=== PATIENT | female | born 1970 | race Caucasian/White ===

== ENCOUNTER 2018-10-30 06:56 | Inpatient (IN) | payer OTHER ==
[~2018-10-30] VITALS: Ht 157.5 cm; Wt 89.0 kg
[2018-10-30] VITALS (25 sets, daily range): BP systolic 117–155; BP diastolic 55–88; PULSE 80–102; RESP 14–24; Ht 157.5 cm; Wt 89.0 kg
[2018-10-30] MEDS ORDERED: ROCURONIUM 50 MG INJ ONE (07:00)
--- NOTE | 2018-10-30 09:17 | PREAC ---
Date/Time of Note Date/Time of Note DATE: 10/30/18 TIME: 09:14 Anesthesia Eval and Record Evaluation Time Pre-Procedure Interview DATE: 10/30/18 TIME: 09:14 Age 48 Sex female NPO: 8 hrs Preoperative diagnosis Lumbar L4-L5 Radiculopathy Planned procedure L4-L5 Laminectomy and fusion Past Medical History Past Medical History: Includes Musculoskeletal: Osteoarthritis GI: Morbid obesity Surgery & Anesthesia Issues No known issue Meds Anticoagulation: No Beta Gen within 24 hr: No Reason Beta Gen not given: Pt. not on B-Gen Meds reviewed: Yes Allergies Coded Allergies: No Known Allergy (Unverified , 10/28/18) Allergies Reviewed: Yes Labs/Studies Labs Reviewed: Reviewed by anesthesiologist test: Negative Studies: ECG Pre-procedure Exam Last vitals Vital Signs Date Temp Pulse Resp B/P (MAP) Pulse Ox O2 O2 Flow FiO2 Time Delivery Rate 10/30/18 98.0 80 18 119/62 100 Room Air 07:26 (81) Airway: Adequate mouth opening, Adequate thyromental dist Mallampati: Mallampati III Teeth: Normal Lung: Normal Heart: Normal ASA Physical Status ASA physical status: 3 Emergency: None Planned Anesthetic General/MAC: ETT Planned Pain Management Parenteral pain med Pre-operative Attestations Prior to commencing anesthesia and surgery, the patient was re-evaluated, there was verification of: *The patient's identity *The results of appropriate recent lab work and preoperative vital signs *The above evaluation not changing prior to induction *Anesthetic plan, risk benefits, alternative and complications discussed with patient/family; questions answered; patient/family understands, accepts and wishes to proceed. CRYSTAL SANDOVAL MD Oct 30, 2018 09:17
--- NOTE | 2018-10-30 09:18 | HPN ---
Date/Time of Note Date/Time of Note DATE: 10/30/18 TIME: 09:15 Interval H&P Admission Note Pt. seen H&P reviewed: Systems changes noted below Patient continues to have intractable axial LBP and B. LE radiating pain and numbness and weakness, R>>L. Discussed the risks and benefits of the above procedure again with the patient and her at bedside and they understand and would like to proceed with surgery. SHIRLEY NOLASCO MD Oct 30, 2018 09:18
[2018-10-30] MEDS ORDERED: BUPIVACAINE 0.5%/EPI (SDV) 10 ML INJ ONE (09:24)
[2018-10-30] MEDS ORDERED: GELATIN SIZE 100 SPONGE ONE ×2 (09:24→15:02)
[2018-10-30] MEDS ORDERED: LIDOCAINE 1%/EPI (1:100,000) (MDV) 20 ML ONE (09:24)
[2018-10-30] MEDS ORDERED: THROMBIN 5000 UNIT VIAL ONE ×2 (09:24→13:21)
[2018-10-30] MEDS ORDERED: POLYMYXIN/BACITRACIN 1L IRRIG ONE (09:25)
[2018-10-30] MEDS ORDERED: LIDOCAINE 0.5% (SDV) 50 ML INJ ONE (09:25)
[2018-10-30] MEDS ORDERED: BUPIVACAINE 0.5%/EPI (SDV) 30 ML INJ ONE (09:25)
[2018-10-30] MEDS ORDERED: METOCLOPRAMIDE 10 MG INJ IV PRN (09:30)
[2018-10-30] MEDS ORDERED: ONDANSETRON 4 MG INJ IV PRN (09:30)
[2018-10-30] MEDS ORDERED: FENTAnyl 50 MCG/ML VIAL IV PRN (09:30)
[2018-10-30] MEDS ORDERED: HYDROmorphONE 1 MG/5 ML IV SYRINGE IV PRN ×2 (09:30)
[2018-10-30] MEDS ORDERED: MEPERIDINE 25 MG INJ IV PRN (09:30)
[2018-10-30] MEDS ORDERED: DIPHENHYDRAMINE 50 MG INJ IV PRN (09:30)
[2018-10-30] MEDS ORDERED: MIDAZOLAM 1 MG/ML 2 ML INJ ONE (09:35)
[2018-10-30] MEDS ORDERED: FENTAnyl 50 MCG/ML VIAL ONE (12:07)
[2018-10-30] MEDS ORDERED: CEFAZOLIN 1 GM INJ ONE ×3 (15:31→15:43)
[2018-10-30] MEDS ORDERED: METOCLOPRAMIDE 10 MG INJ ONE (15:35)
[2018-10-30] MEDS ORDERED: ONDANSETRON 4 MG INJ ONE (15:35)
[2018-10-30] MEDS ORDERED: PROPOFOL 20 ML ONE (15:43)
[2018-10-30] MEDS ORDERED: LIDOCAINE 2% (SDV) 5 ML INJ ONE (15:43)
[2018-10-30] MEDS ORDERED: ETOMIDATE 20 MG INJ ONE (15:43)
--- NOTE | 2018-10-30 16:11 | PAC ---
Date/Time of Note Date/Time of Note DATE: 10/30/18 TIME: 16:10 Post-Anesthesia Notes Post-Anesthesia Note Last documented vital signs Vital Signs Date Temp Pulse Resp B/P (MAP) Pulse Ox O2 O2 Flow FiO2 Time Delivery Rate 10/30/18 98.0 80 18 119/62 100 Room Air 07:26 (81) Activity: WNL Respiratory function: WNL Cardiovascular function: WNL Mental status: Baseline Pain reasonably controlled: Yes Hydration appropriate: Yes Nausea/Vomiting absent: Yes Comments BP:134/67, P:84, Spo2:100%, T:98,8 CRYSTAL SANDOVAL MD Oct 30, 2018 16:11
[2018-10-30] MEDS ORDERED: NALOXONE (0.4 MG/ML) INJ IV PRN (16:30)
[2018-10-30] MEDS ORDERED: DOCUSATE SODIUM 100 MG CAP PO SCH ×2 (16:30→17:00)
[2018-10-30] MEDS ORDERED: NACL 0.9% 3 ML SYG IV SCH (16:30)
--- NOTE | 2018-10-30 16:39 | SIPON ---
Date/Time of Note Date/Time of Note DATE: 10/30/18 TIME: 16:36 Operative Report Preoperative Diagnosis L4-5 Grade II Spondylolisthesis Postoperative Diagnosis L4-5 Grade II spondylolisthesis Operation/Procedure Performed MIS L4-5 TLIF (11mm height expandable Wensel spine cage) Surgeon see signature line court assistant None Anesthesia: general Estimated blood loss: 150 - 200 ml's (200cc) Transfusion Required none Specimen None Grafts/Implants Please see OP report. Complications none SHIRLEY NOLASCO MD Oct 30, 2018 16:39
--- NOTE | 2018-10-30 16:39 | OPR ---
Date/Time of Note Date/Time of Note DATE: 10/30/18 TIME: 16:39 Operative Report Procedure Date: Oct 30, 2018 Preoperative Diagnosis 1. Grade 2 L4-5 spondylolisthesis 2. L4-5 lateral recess and foraminal stenosis Postoperative Diagnosis 1. Grade 2 L4-5 spondylolisthesis 2. L4-5 lateral recess and foraminal stenosis Operation/Procedure Performed 1. Minimally invasive right L4 decompressive hemilaminectomy (more laminectomy performed than would be required for a simple transforaminal lumbar interbody a rthrodesis) 2. Minimally invasive right L4-5 total facetectomy for transforaminal lumbar interbody arthrodesis 3. Placement of intervertebral cage at L4-5 (Wensel Spine titanium expandable lordotic TLIF 11 mm height cage) 4. Left L4-5 minimally invasive posterior pedicle screw instrumentation (RTI [place] 6.5 mm diameter pedicle screws) 5. L4-5 posterior arthrodesis 6. Internal reduction of L4-5 spondylolisthesis 7. Bone marrow aspirate harvest 8. Morselized local autologous bone graft harvest 9. Morselized allograft placement (demineralized bone matrix putty) 10. Intraoperative microscope with microdissection 11. Intraoperative fluoroscopy with professional interpretation 12. Intraoperative neurophysiologic monitoring including SSEP, MEP and EMG Surgeon see signature line Chief Crew Scheduler None Anesthesia Type: general Estimated Blood Loss: 150 - 200 ml's (200cc) Transfusion none Specimen None Grafts/Implants Please see below Tubes/Drains None Complications none Pt Condition Post Procedure: stable Disposition: PACU Indications This is a 48-year-old female with long-standing history of intractable axial low back pain and bilateral lower extremity radiating pain (much greater on the right than the left), numbness and weakness in the L4 and L5 distribution. The patient has not responded to conservative management. The risks and benefits of the above operation were explained in great detail to the patient and her both in the clinic setting as well as in the preoperative area. The patient and her fully understood the above discussion and wished to proceed with this surgery. Procedure Description The patient was brought to the operating room and after general anesthesia was obtained, was placed prone on top of the open Flako table. Her arms were abducted less than 90 degrees and placed in superman position. All pressure points were noted and padded appropriately. The midline lumbar spine was marked. Vertical paraspinal lines approximately 4-1/2 cm lateral to midline were marked. After the skin was prepped and draped under standard sterile fashion, the spinal needle was inserted along the paraspinal lines and the L4 and L5 pedicle entry points were located. The patient's L4 and L5 pedicles appeared to be very sclerotic especially on the right side making an of the pedicles especially on the right difficult. The patient's spondylolisthesis at L4-5 was demonstrated on the lateral fluoroscopy with a spondylolisthesis appearing to be a grade 2. Then small vertical incisions connecting the entry points of the spinal needle at L4 and L5 pedicles was marked on each side along the paraspinal lumbar lines. Local anesthetics were infiltrated into the marked incisions. The skin was then incised down to the level of the fascia. Jamshidi needles were used to cannulate the L4 and L5 pedicles on the left side using a combination of AP and lateral fluoroscopy. When the tip of the Jamshidi needle was at the pedicle vertebral body junction, another AP fluoroscopy was taken to confirm that the medial wall of the pedicle was not violated. And the Jamshidi needle was slightly advanced into the vertebral bodies of L4 and L5 under direct lateral fluoroscopy. The bone appeared to be extremely sclerotic and firm. Despite repeated attempts to cannulate the right L4 and L5 pedicles, we could not visualize the pedicle borders especially the medial wall of the pedicle as well under AP fluoroscopy and could not cannulate the pedicles as the pedicles on the right side appeared to be even more sclerotic than the left side. Since the pedicles on the right side could not be cannulated safely, we decided not to instrument the right side. Bone marrow aspirate was harvested from the left L4 and L5 pedicles for later grafting. The Jamshidi needles were exchanged with K wires and the K wires were then stimulated and all the EMG thresholds were greater than 20 mA. 6.5 mm diameter pedicle screws were then inserted at the left L4 and L5 pedicles under direct lateral fluoroscopy with excellent bony purchase. Attention was now paid to the right side. Using serial tube dilators, the posterior soft tissue was dissected off the right L4-5 facet complex under direct lateral fluoroscopy. The final working tube was inserted under direct lateral fluoroscopy, kept parallel to the L4-5 disc space and medialized and the tube was locked to the table in that position. The operating microscope was brought into the field. The posterior soft tissue was denuded off the right L4-5 facet complex. The facet complex was severely hypertrophied and parts of the hypertrophied facet complex appeared to be unstable and incompetent likely accounting for the patient's L4-5 spondylolisthesis. Using a combination of high-speed drill, Kerrison rongeurs and curettes, we then performed a right L4-5 total facetectomy and a right L4 decompressive hemilaminectomy. All the bone was harvested for later grafting. The right L4-5 foramen was severely stenotic and the foramen was fully unroofed and completely decompressed. The right L4-5 lateral recess was also severely stenotic was fully decompressed. The right L4-5 annulus was then cut in a boxlike fashion. The discectomy work was then begun. Serial faraz were then used for disc prep. The endplates were fully decorticated. The disc space was then irrigated with antibiotic solution. Using the less aggressive box faraz, we were able to determine the appropriate size for the intervertebral cage under direct lateral fluoroscopy. The expandable cage was then inserted under direct lateral fluoroscopy and medialized. Using the twisting/rotation mechanism of the cage, we were able to further advance the cage into the disc space until it was countersunk under direct lateral fluoroscopy. The cage was then fully expanded allowing excellent distraction of the disc space and creation of further lordosis. The inside of the cage was then packed with a combination of the locally harvested autologous bone, bone marrow aspirate and morselized allograft demineralized bone matrix putty. The locking set screw was inserted on the expandable cage. The diversity intern was removed. The traversing right L5 nerve root or thecal sac were fully decompressed. There was a small area of the dura that appeared to be thin. Some DuraSeal was applied over the exposed dura. Several pieces of Gelfoam were placed over the neuroforamen. Some of the remaining combination of biologic material was placed over the neuroforamen for posterior arthrodesis. The tube was then removed. The appropriate size sushma was measured on the left side and percutaneously inserted. The setscrew was inserted over the left L4 pedicle screw and fully tightened with a torque wrench and a counter torque instrument. Then the setscrew was inserted over the left L4 pedicle screw using the reduction system and slowly reduced under direct lateral fluoroscopy allowing significant reduction of the grade 2 spondylolisthesis to about grade 0.5 spondylolisthesis. The left L4 setscrew was then fully tightened with a torque wrench and the counter torque wrench instrument. The pedicle screw posts were then broken off and removed. Final AP and lateral x- ray showed good positioning of the hardware. Both wounds were copiously irrigated with antibiotic solution. The muscle and fascial layers were reapp roximated with interrupted sutures. The skin was reapproximated with a simple running rapid 3-0 suture. Sterile dressing was placed on top of each of the incisions. Patient was then placed supine on the hospital bed, woken up, extubated and transported to the recovery room moving her upper and lower extremities spontaneously. Prognosis: Good Wound classification: SHIRLEY Olmstead MD Oct 30, 2018 16:39
[2018-10-30] MEDS: DOCUSATE SODIUM 100 MG CAP PO SCH (18:34)
[2018-10-30] MEDS: CEFAZOLIN 1 GM/50 ML (PMX) 50 ML IVPB SCH ×2 (18:34→23:43)
[2018-10-30] MEDS: DEXTROSE 5%-0.45% NACL 1,000 ML IV SCH (18:37)
--- NOTE | 2018-10-30 19:03 | CONS ---
Assessment/Plan Assessment/Plan Hospital Course (Demo Recall) 48 yo female POD0 after lumbar radiculopathy surgery we have been asked to provide medicine co managemnet - Patient without medical comorbidities - Pain control - Advanced diet as tolerated - Peroperative management per neurosurgery Consultation Date/Type/Reason Admit Date/Time Oct 30, 2018 at 06:56 Date/Time of Note DATE: 10/30/18 TIME: 18:48 Hx of Present Illness 48 yo female with lumbar radiculopathy who is s/p OR POD0 per Dr Martinez We have been asked to provide medical co management patient denies any chronic medical conditions aside from back issues Feels pain at surgical site currently Constitutional: no complaints, improved Eyes: no complaints ENT: no complaints Respiratory: no complaints Cardiovascular: no complaints Gastrointestinal: no complaints Genitourinary: no complaints Musculoskeletal: no complaints Skin: no complaints Neurologic: no complaints Endocrine: no complaints Lymphatic: no complaints Psychological: no complaints, nl mood/affect Immunologic: no complaints Past Medical History Medical History: no pertinent history Medications Current Medications Hydromorphone HCl (Dilaudid) 0.2 mg PACU PRN IV MILD PAIN 1-3; Start 10/30/18 at 09:30; Stop 10/30/18 at 21:00 Hydromorphone HCl (Dilaudid) 0.4 mg PACU PRN IV MOD PAIN 4-6 Last administered on 10/30/18at 17:01; Admin Dose 0.4 MG; Start 10/30/18 at 09:30; Stop 10/30/18 at 21 :00 Ondansetron HCl (Zofran Inj) 4 mg PACU ORDER PRN IV NAUSEA/VOMITING Last administered on 10/30/18at 17:01; Admin Dose 4 MG; Start 10/30/18 at 09:30; Stop 10/30/18 at 21:00 Meperidine HCl (Demerol) 25 mg PACU ORDER PRN IV .RIGORS; Start 10/30/18 at 09:30; Stop 10/30/18 at 21:00 Dextrose/Sodium Chloride 1,000 ml @ 100 mls/hr Q10H IV Last administered on 10/30/18at 18:37; Admin Dose 100 MLS/HR; Start 10/30/18 at 16:22 Cefazolin Sodium 50 ml @ 100 mls/hr Q6 IVPB Last administered on 10/30/18at 18:34; Admin Dose 100 MLS/HR; Start 10/30/18 at 18:00; Stop 10/31/18 at 12:29 IV Flush (NS 3 ml) 3 ml PER PROTOCOL IV ; Start 10/30/18 at 16:30 Naloxone HCl (Narcan) 0.2 mg Q2M PRN IV RR 8 BREATHS/MIN OR LESS; Start 10/30/18 at 16:30 Acetaminophen/ Hydrocodone Bitart ([place] (10/325)) 2 tab Q6H PRN PO MODERATE PAIN LEVEL 4-6; Start 10/30/18 at 16:30 Cyclobenzaprine HCl (Flexeril) 10 mg TID PO ; Start 10/30/18 at 21:00 Hydromorphone HCl (Dilaudid) 0.4 mg Q1H PRN IV SEVERE PAIN LEVEL 7-10; Start 10/30/18 at 16:30 Docusate Sodium (Colace) 100 mg Q12H PO Last administered on 10/30/18at 18:34; Admin Dose 100 MG; Start 10/30/18 at 17:00 Allergies: Coded Allergies: No Known Allergy (Unverified , 10/28/18) Social History Alcohol Use: none Smoking Status: Never smoker Drug Use: none Exam/Review of Systems Exam Vitals Vital Signs Date Temp Pulse Resp B/P (MAP) Pulse Ox O2 O2 Flow FiO2 Time Delivery Rate 10/30/18 86 19 117/58 98 Nasal 2.0 17:30 (77) Cannula 10/30/18 98.3 17:15 Constitutional: alert, oriented, well developed Psych: no complaints, nl mood/affect Head: normocephalic, atraumatic Eyes: nl conjunctiva, EOMI, nl lids, nl sclera, PERRL ENMT: nl external ears & nose, nl lips & teeth, nl nasal mucosa & septum Neck: supple, non-tender Respiratory: clear to auscultation, normal air movement Cardiovascular: regular rate and rhythm, nl pulses Gastrointestinal: soft, nl liver, spleen, non-tender Musculoskeletal: nl extremities to inspection, nl gait and stance Extremities: normal pulses Neurological: GLASS PULVERIZER EQUIPMENT OPERATOR II-XII intact, nl mental status, nl speech, nl strength Skin: nl turgor; No rash or lesions Lymph: nl lymph nodes Results Results 24hrs Laboratory Tests Test 10/30/18 16:04 Urine Color YELLOW Urine Clarity SLIGHTLY CLOUDY A Urine pH 5.0 Urine Specific [place] 1.030 Urine Ketones TRACE A Urine Nitrite NEGATIVE Urine Bilirubin NEGATIVE Urine Urobilinogen NEGATIVE Urine Leukocyte Esterase NEGATIVE Urine Microscopic RBC 33 H Urine Microscopic WBC 4 Urine Mucus MODERATE Urine Hemoglobin 2+ H Urine Glucose NEGATIVE Urine Total Protein NEGATIVE Medications Medication Current Medications Hydromorphone HCl (Dilaudid) 0.2 mg PACU PRN IV MILD PAIN 1-3; Start 10/30/18 at 09:30; Stop 10/30/18 at 21:00 Hydromorphone HCl (Dilaudid) 0.4 mg PACU PRN IV MOD PAIN 4-6 Last administered on 10/30/18at 17:01; Admin Dose 0.4 MG; Start 10/30/18 at 09:30; Stop 10/30/18 at 21:00 Ondansetron HCl (Zofran Inj) 4 mg PACU ORDER PRN IV NAUSEA/VOMITING Last administered on 10/30/18at 17:01; Admin Dose 4 MG; Start 10/30/18 at 09:30; Stop 10/30/18 at 21:00 Meperidine HCl (Demerol) 25 mg PACU ORDER PRN IV .RIGORS; Start 10/30/18 at 09:30; Stop 10/30/18 at 21:00 Dextrose/Sodium Chloride 1,000 ml @ 100 mls/hr Q10H IV Last administered on 10/30/18at 18:37; Admin Dose 100 MLS/HR; Start 10/30/18 at 16:22 Cefazolin Sodium 50 ml @ 100 mls/hr Q6 IVPB Last administered on 10/30/18at 18:34; Admin Dose 100 MLS/HR; Start 10/30/18 at 18:00; Stop 10/31/18 at 12:29 IV Flush (NS 3 ml) 3 ml PER PROTOCOL IV ; Start 10/30/18 at 16:30 Naloxone HCl (Narcan) 0.2 mg Q2M PRN IV RR 8 BREATHS/MIN OR LESS; Start 10/30/18 at 16:30 Acetaminophen/ Hydrocodone Bitart ([place] (10/325)) 2 tab Q6H PRN PO MODERATE PAIN LEVEL 4-6; Start 10/30/18 at 16:30 Cyclobenzaprine HCl (Flexeril) 10 mg TID PO ; Start 10/30/18 at 21:00 Hydromorphone HCl (Dilaudid) 0.4 mg Q1H PRN IV SEVERE PAIN LEVEL 7-10; Start 10/30/18 at 16:30 Docusate Sodium (Colace) 100 mg Q12H PO Last administered on 10/30/18at 18:34; Admin Dose 100 MG; Start 10/30/18 at 17:00 HANS SHAH MD Oct 30, 2018 19:03
[2018-10-30] MEDS: CYCLOBENZAPRINE 10 MG TAB PO SCH (20:07)
[2018-10-30] MEDS: HYDROmorphONE 0.5 MG/0.5 ML SYG IV PRN ×2 (20:07→23:43)
[2018-10-31 00:15] VITALS: BP 111/59; PULSE 92; RESP 18
[2018-10-31] MEDS: HYDROmorphONE 0.5 MG/0.5 ML SYG IV PRN ×2 (03:35→11:14)
[2018-10-31] MEDS: DOCUSATE SODIUM 100 MG CAP PO SCH ×2 (05:46→17:00)
[2018-10-31] MEDS: HYDROCODONE/APAP (10/325) TAB PO PRN ×2 (05:46→12:57)
[2018-10-31] MEDS: CEFAZOLIN 1 GM/50 ML (PMX) 50 ML IVPB SCH ×2 (05:47→11:21)
[2018-10-31] MEDS: DEXTROSE 5%-0.45% NACL 1,000 ML IV SCH (05:47)
[2018-10-31 07:34] VITALS: BP 110/57; PULSE 80; RESP 17
[2018-10-31] MEDS: CYCLOBENZAPRINE 10 MG TAB PO SCH ×2 (08:54→13:58)
[2018-10-31 14:19] VITALS: BP 105/60; PULSE 76; RESP 18
--- NOTE | 2018-10-31 15:51 | CONS ---
Assessment/Plan Assessment/Plan Hospital Course (Demo Recall) 48 yo female POD1 after lumbar radiculopathy surgery we have been asked to provide medicine co managemnet - Patient without medical comorbidities - Pain control - Advanced diet as tolerated - Peroperative management per neurosurgery Consultation Date/Type/Reason Admit Date/Time Oct 30, 2018 at 06:56 Initial Consult Date Date/Time of Note DATE: 10/31/18 TIME: 15:51 24 HR Interval Summary Free Text/Dictation Working with PT Symptoms controlled Tolerating diet Exam/Review of Systems Exam Vitals Vital Signs Date Temp Pulse Resp B/P (MAP) Pulse Ox O2 O2 Flow FiO2 Time Delivery Rate 10/31/18 98.0 76 18 105/60 100 14:19 (75) 10/30/18 Nasal 2.0 19:45 Cannula Intake and Output 10/30/18 10/30/18 10/31/18 1515:00 23:00 07:00 IntakeIntake Total 0 ml 2250 ml 340 ml OutputOutput Total 530 ml 3400 ml BalanceBalance 0 ml 1720 ml -3060 ml Constitutional: alert, oriented, well developed Psych: no complaints, nl mood/affect Head: normocephalic, atraumatic Eyes: nl conjunctiva, EOMI, nl lids, nl sclera, PERRL ENMT: nl external ears & nose, nl lips & teeth, nl nasal mucosa & septum Neck: supple, non-tender Respiratory: clear to auscultation, normal air movement Cardiovascular: regular rate and rhythm, nl pulses Gastrointestinal: soft, nl liver, spleen, non-tender Musculoskeletal: nl extremities to inspection, nl gait and stance Extremities: normal pulses Neurological: BELLY DUMP DRIVER II-XII intact, nl mental status, nl speech, nl strength Skin: nl turgor; No rash or lesions Lymph: nl lymph nodes Results Results 24hrs Laboratory Tests Test 10/30/18 16:04 Urine Color YELLOW Urine Clarity SLIGHTLY CLOUDY A Urine pH 5.0 Urine Specific [place] 1.030 Urine Ketones TRACE A Urine Nitrite NEGATIVE Urine Bilirubin NEGATIVE Urine Urobilinogen NEGATIVE Urine Leukocyte Esterase NEGATIVE Urine Microscopic RBC 33 H Urine Microscopic WBC 4 Urine Mucus MODERATE Urine Hemoglobin 2+ H Urine Glucose NEGATIVE Urine Total Protein NEGATIVE Medications Medication Current Medications IV Flush (NS 3 ml) 3 ml PER PROTOCOL IV ; Start 10/30/18 at 16:30 Naloxone HCl (Narcan) 0.2 mg Q2M PRN IV RR 8 BREATHS/MIN OR LESS; Start 10/30/18 at 16:30 Cyclobenzaprine HCl (Flexeril) 10 mg TID PO Last administered on 10/31/18at 13:58; Admin Dose 10 MG; Start 10/30/18 at 21:00 Docusate Sodium (Colace) 100 mg Q12H PO Last administered on 10/31/18at 05:46; Admin Dose 100 MG; Start 10/30/18 at 17:00 Acetaminophen/ Hydrocodone Bitart ([place] (10/325)) 2 tab Q6H PO ; Start 10/31/18 at 19:00 Tramadol HCl (Ultram) 50 mg Q6H PO ; Start 10/31/18 at 16:00 HANS SHAH MD Oct 31, 2018 15:51
[2018-10-31] MEDS ORDERED: traMADol 50 MG TAB PO SCH (16:00)
[2018-10-31] MEDS: BACLOFEN 10 MG TAB PO SCH ×2 (17:00→20:16)
[2018-10-31] MEDS ORDERED: ONDANSETRON 4 MG INJ IV PRN (18:00)
[2018-10-31] MEDS: HYDROCODONE/APAP (10/325) TAB PO SCH (18:50)
[2018-10-31 20:00] VITALS: BP 109/57; PULSE 88; RESP 19
[2018-11-01] MEDS: HYDROCODONE/APAP (10/325) TAB PO SCH ×3 (01:18→13:52)
[2018-11-01] MEDS: DOCUSATE SODIUM 100 MG CAP PO SCH ×2 (04:15→17:05)
[2018-11-01 07:53] VITALS: BP 121/62; PULSE 72; RESP 19
[2018-11-01] MEDS: BACLOFEN 10 MG TAB PO SCH ×2 (10:27→13:52)
[2018-11-01 15:20] VITALS: BP 118/58; PULSE 86; RESP 18
--- NOTE | 2018-11-01 23:13 | PN ---
Date/Time of Note Date/Time of Note DATE: 11/01/18 TIME: 23:13 SHIRLEY NOLASCO MD Nov 01, 2018 23:13
--- NOTE | 2018-11-02 10:17 | DS ---
Date/Time of Note Date/Time of Note DATE: 11/02/18 TIME: 10:16 Discharge Summary Admission/Discharge Info Admit Date/Time Oct 30, 2018 at 06:56 Discharge Date/Time Nov 01, 2018 at 19:00 Discharge Diagnosis Degenerative disc disease Patient Condition: Stable Hospital Course Patient had lumbar surgery per Dr Jett. See operative reports for details. Following this she stayed in the hospital a couple nights for pain control and to work with PT. She was then discharged to self [facility] Meds No Active Prescriptions or Reported Meds Primary Care Provider Not On Staff Doctor HANS SHAH MD Nov 02, 2018 10:17
== END 2018-11-01 19:00 | disposition home or self-care (01) | DRG 455 ==
LOC: REC 06:56 → MS1 17:20
PROVIDERS: ADMIT Neurological Surgery; ATTEND Neurological Surgery
PROC: 0SG0071 Fusion of Lumbar Vertebral Joint with Autologous Tissue Substitute, Posterior Approach, Posterior Column, Open Approach (ICD-10-PCS; 2018-10-30)
PROC: 0SB20ZZ Excision of Lumbar Vertebral Disc, Open Approach (ICD-10-PCS; 2018-10-30)
PROC: 07DS3ZZ Extraction of Vertebral Bone Marrow, Percutaneous Approach (ICD-10-PCS; 2018-10-30)
PROC: 00UT0JZ Supplement Spinal Meninges with Synthetic Substitute, Open Approach (ICD-10-PCS; 2018-10-30)
PROC: 4A11X4G Monitoring of Peripheral Nervous Electrical Activity, Intraoperative, External Approach (ICD-10-PCS; 2018-10-30)
PROC: 0SG00AJ Fusion of Lumbar Vertebral Joint with Interbody Fusion Device, Posterior Approach, Anterior Column, Open Approach (ICD-10-PCS; principal; 2018-10-30 09:00)
DX: M43.16 Spondylolisthesis, lumbar region (principal); M48.061 Spinal stenosis, lumbar region without neurogenic claudication; M51.16 Intervertebral disc disorders with radiculopathy, lumbar region; E66.01 Morbid (severe) obesity due to excess calories; Z68.35 Body mass index [BMI] 35.0-35.9, adult
CPT/HCPCS: 72114; 81001; 87086; 97110; 97116; 97163; 97164; 97530; C1713; J0690; J1170; J2250; J2405; J2765; J3010; J7042; L0639